=== PATIENT | female | born 1975 | race Caucasian/White ===

== ENCOUNTER 2017-04-24 20:47 | Emergency (ER) | payer MEDICAID ==
[2017-04-24] MEDS ORDERED: KETOROLAC 30 MG/ML VIAL IM ONE (21:13)
--- NOTE | 2017-04-24 21:21 | Emergency Department Record ---
History of Present Illness - General Chief complaint: Rash Stated complaint: RASH AND PAIN Time Seen by Provider: 04/24/17 21:01 Source: Patient Mode of Arrival: Ambulatory Limitations: No limitations - History of Present Illness Initial comments: The patient is here due to a painful skin rash and total body pain for years. She had an appointment with her PCP last week and had multiple blood tests performed. She did try to F/U with her PCP this week but since her PCP no longer works here at [facility] she decided to come to the ER. Her main complaint is total body pain and a chronic skin rash. She states she used to be on Tramadol for the pain but now has been weaned off of it. She is very frustrated as to why no one can figure out her condition and has seen multiple specialists for it. MD complaint: Rash Onset/Timin -: Year(s) Location: Generalized Quality: Other Consistency: Constant Improves with: None Worsens with: None Context: None Associated symptoms: Denies other symptoms Treatments Prior to Arrival: Other - Related Data Previous Rx's Medication Instructions Recorded Clindamycin HCl [Cleocin HCl] 300 mg PO QID #28 capsule 04/24/17 Allergies Allergy/AdvReac Type Severity Reaction Status Date / Time hydrocodone bitartrate Allergy Intermediate NAUSEA AND Verified 04/24/17 21:00 [From Vicodin] VOMITING zolpidem tartrate Allergy Intermediate BEHAVIORAL Verified 04/24/17 21:00 [From Ambien] CHANGES Travel Screening - Travel/Exposure Within Last 30 Days Have you traveled within the last 30 days?: No - Travel/Exposure Within Last Year Have you traveled outside the [place] in the last year?: No - Additonal Travel Details Have you been exposed to anyone with a communicable illness?: No - Travel Symptoms Symptom Screening: None Review of Systems Constitutional: Reports: Malaise. Denies: Chills, Fever Eyes: Denies: Eye discharge ENT: Denies: Congestion Respiratory: Denies: Cough, Dyspnea Past Medical History - SOCIAL HISTORY Smoking Status: Current every day smoker Alcohol Use: None Drug Use Detail:: Marijuana - RESPIRATORY Hx Respiratory Disorders: Yes Hx Asthma: Yes Hx COPD: Yes - CARDIOVASCULAR Hx Cardio Disorders: No - NEURO Hx Neuro Disorders: Yes Hx Neuropathy: Yes - GI Hx GI Disorders: Yes Hx Reflux: Yes Comment:: crohns, IBSD - Hx Genitourinary Disorders: No - ENDOCRINE Hx Endocrine Disorders: No Hx Diabetes: No Hx Thyroid Disease: No - MUSCULOSKELETAL Hx Musculoskeletal Disorders: Yes Hx Arthritis: Yes (RA) Hx Fibromyalgia: Yes - PSYCH Hx Psych Problems: Yes Hx Anxiety: Yes Hx Depression: Yes - HEMATOLOGY/ONCOLOGY Hx Hematology/Oncology Disorders: Yes Hx Anemia: Yes Comment:: Lyme's disease in 2007 Family Medical History Any Significant Family History?: No Hx Cancer: Grandparents Hx Diabetes: Grandparents Physical Exam - General General Appearance: Alert, Oriented x3, Cooperative, No acute distress - Head Head exam: Atraumatic, Normocephalic - Eye Eye exam: Normal appearance, PERRL - ENT Throat exam: Normal inspection. negative: Tonsillar erythema, Tonsillar exudate - Neck Neck exam: Normal inspection, Full ROM. negative: Tenderness - Respiratory Respiratory exam: Normal lung sounds bilaterally. negative: Respiratory distress - Cardiovascular Cardiovascular Exam: Regular rate, Normal rhythm, Normal heart sounds - Extremities Extremities exam: Normal inspection, Full ROM, Normal capillary refill. negative: Tenderness - Neurological Neurological exam: Alert. negative: Motor sensory deficit - Skin Skin exam: Rash (There are multiple pustural lesions to her face, scalp and extremities. They appear to be from picking at her skin in some places.) Course Vital Signs 04/24/17 20:49 Temperature 99.1 F Pulse Rate 88 Respiratory 20 Rate Blood Pressure 145/93 Pulse Ox 99 - Reevaluation(s) Reevaluation #1: The patient is doing well at this time. Her repeat temp is normal. Her lab work did return with a very elevated WBC but I strongly believe it is due to the large dose of oral steroids she was placed on last week. She states she was given 100 mg daily for 3 days, then 80 mg daily for 3 days, and then decreased to 60 mg daily. 04/24/17 22:34 Reevaluation #2: The patient is doing a lot better at this time. I did explain her test results to her and the need to F/U next week with her PCP. 04/24/17 22:46 Medical Decision Making - Lab Data Result diagrams: 04/24/17 21:30 04/24/17 21:30 Disposition Disposition: Discharge Clinical Impression: Skin lesions, generalized Disposition: Home, Self-Care Condition: (1) Good Instructions: Acute Rash (ED) Additional Instructions: Please take the Clindamycin as directed and continue your home pain medicines. Please see your PCP next week as planned. Return to the ER for any worsening symptoms. Prescriptions: Clindamycin HCl [Cleocin HCl] 300 mg PO QID #28 capsule Forms: Patient Portal Access Time of Disposition: 22:48 Quality - Quality Measures Quality Measures: N/A - Blood Pressure Screening View Details: Yes Does Patient Have Any of the Following: No Blood Pressure Classification: Hypertensive Reading Systolic Measurement: 145 Diastolic Measurement: 93 Screening for High Blood Pressure: < Pre-Hypertensive BP, F/U Documented > [ G8950] Pre-Hypertensive Follow-up Interventions: Referral to alternative/primary care provider.
[2017-04-24 21:34] LABS: HEMATOCRIT 34.3 % (35.0-47.0); HEMOGLOBIN 11.1 gm/dl (11.6-16.0); LYMPH % 4.5 % (16-45); MEAN CELL VOLUME 84.7 fl (81-97); MEAN CORPUSCULAR HEMOGLOBIN 27.4 pg (27-33); MEAN CORPUSCULAR HGB CONC 32.4 g/dl (32-36); MEAN PLATELET VOLUME 8.3 fl (7.4-10.4); MONO % 3.8 % (0-9); PLATELET COUNT 528 K/uL (130-400); RED BLOOD COUNT 4.05 M/uL (3.80-5.40); RED CELL DISTRIBUTION WIDTH 18.5 % (11.5-14.5)
[2017-04-24 21:38] LABS: WHITE BLOOD COUNT W/O DIFF 24.7 K/uL (4.2-12.2)
[2017-04-24 21:53] LABS: ALB/GLOB RATIO 1.4 (1.1-1.8); ALBUMIN 4.4 g/dL (4.0-5.0); ALKALINE PHOSPHATASE 89 U/L (35-104); ALT/SGPT 24 U/L (<33); AST/SGOT 23 U/L (10.0-35.0); BLOOD UREA NITROGEN 9 mg/dL (6-20); CREATININE 0.6 mg/dL (0.5-0.9); EST GLOMERULAR FILTRATION RATE > 60 mL/min; GLUCOSE,RANDOM 169 mg/dL (74-109); TOTAL PROTEIN 7.6 g/dL (6.6-8.7)
[2017-04-24 22:19] LABS: PLATELET ESTIMATE INCREASED (NORMAL)
[2017-04-24 22:30] LABS: URINE APPEARANCE CLEAR; URINE BILIRUBIN NEGATIVE (NEGATIVE); URINE BLOOD NEGATIVE (NEGATIVE); URINE COLOR YELLOW; URINE GLUCOSE (UA) NEGATIVE (NEGATIVE); URINE KETONE NEGATIVE (NEGATIVE); URINE LEUKOCYTE ESTERASE NEGATIVE (NEGATIVE); URINE NITRITE NEGATIVE (NEGATIVE); URINE PROTEIN NEGATIVE (NEGATIVE); URINE UROBILINOGEN 0.2 E.U./dL (0.20 - 1.00)
[2017-04-24] MEDS ORDERED: CLINDAMYCIN 150 MG CAP PO ONE (22:38)
== END 2017-04-24 22:57 | disposition home or self-care (01) ==
LOC: ER 20:47
DX: L98.9 Disorder of the skin and subcutaneous tissue, unspecified (principal); D72.829 Elevated white blood cell count, unspecified
CPT/HCPCS: 99283 ×2; 96372; 86140; 80053; 81003; 85027; J1885

== ENCOUNTER 2017-04-28 14:54 | Emergency (ER) | payer MEDICAID ==
--- NOTE | 2017-04-28 15:06 | Emergency Department Record ---
History of Present Illness - General Stated Complaint: PSYCH EVAL Time Seen by Provider: 04/28/17 14:59 Source: Patient Mode of Arrival: Ambulatory Limitations: No limitations - History of Present Illness Initial Comments: 41 yo female presents to the ER from her PCP's office at the [facility]. The patient has been exhibiting erratic odd behavior with increased anxiety, stress, agitation that seems to manifest with excessive scratching, skin picking, preoccupation. Per her PCP she has had some thoughts of self harm. The patient has a history of Bipolar, anxiety, borderline, neurotic. Her PCP is Joana PARDO at the [facility]. The patient feels worthless, hates herself and others. She does not have a plan but can "figure something out". She is extremely pre-occupied with her skin and that she has disease in spite of being seen by dermatology and [facility]. She thinks the lesions are to a point that they are inside her head and effect her thoughts. MD Complaint: Feels depressed, Suicidal ideation, Other -: Days(s) Associated Psychiatric Symptoms: Depression, Suicidal ideation Quality: Constant Improves With: None Worsens With: Other Context: Significant life stressor Treatments Prior to Arrival: None - Henderson Coma Scale Eye Response: (4) Open spontaneously Motor Response: (6) Obeys commands Verbal Response: (5) Oriented Henderson Total: 15 - Related Data Previous Rx's Medication Instructions Recorded Clindamycin HCl [Cleocin HCl] 300 mg PO QID #28 capsule 04/24/17 Allergies Allergy/AdvReac Type Severity Reaction Status Date / Time hydrocodone bitartrate Allergy Intermediate NAUSEA AND Verified 04/28/17 15:20 [From Vicodin] VOMITING zolpidem tartrate Allergy Intermediate BEHAVIORAL Verified 04/28/17 15:20 [From Ambien] CHANGES Review of Systems Constitutional: Denies: Chills, Fever, Weakness Eyes: Denies: Eye discharge, Eye pain, Photophobia ENT: Denies: Congestion, Throat pain Respiratory: Denies: Cough Cardiovascular: Denies: Chest pain, Syncope Endocrine: Reports: Fatigue Gastrointestinal: Reports: Abdominal pain (history of Crohn's). Denies: Diarrhea, Nausea, Vomiting Genitourinary: Denies: Dysuria, Urgency Musculoskeletal: Denies: Arthralgia, Back pain, Myalgia Skin: Reports: As per HPI, Rash Neurological: Denies: Headache Psychiatric: Reports: Anxiety, Depression, Suicidal thoughts Hematological/Lymphatic: Denies: Easy bleeding, Easy bruising, Swollen glands Past Medical History - SOCIAL HISTORY Smoking Status: Current every day smoker Drug Use Detail:: Marijuana - RESPIRATORY Hx Respiratory Disorders: Yes Hx Asthma: Yes Hx COPD: Yes - CARDIOVASCULAR Hx Cardio Disorders: No - NEURO Hx Neuro Disorders: Yes Hx Neuropathy: Yes - GI Hx GI Disorders: Yes Hx Reflux: Yes Comment:: crohns, IBSD - Hx Genitourinary Disorders: No - ENDOCRINE Hx Endocrine Disorders: No Hx Diabetes: No Hx Thyroid Disease: No - MUSCULOSKELETAL Hx Musculoskeletal Disorders: Yes Hx Arthritis: Yes (RA) Hx Fibromyalgia: Yes - PSYCH Hx Psych Problems: Yes Hx Anxiety: Yes Hx Depression: Yes - HEMATOLOGY/ONCOLOGY Hx Hematology/Oncology Disorders: Yes Hx Anemia: Yes Comment:: Lyme's disease in 2007 Family Medical History Hx Cancer: Grandparents Hx Diabetes: Grandparents Physical Exam - General General Appearance: Alert, Oriented x3, Cooperative, No acute distress, Anxious - Head Head exam: Atraumatic, Normocephalic. negative: Normal inspection Head exam detail: Abrasion (numerous skin scabs) - Eye Eye exam: Normal appearance, PERRL. negative: Conjunctival injection, Scleral icterus - ENT ENT exam: Normal exam, Mucous membranes moist Ear exam: Normal external inspection Nasal Exam: Normal inspection Mouth exam: Normal external inspection Teeth exam: Normal inspection Throat exam: Normal inspection - Neck Neck exam: Normal inspection - Respiratory Respiratory exam: Normal lung sounds bilaterally. negative: Respiratory distress - Cardiovascular Cardiovascular Exam: Regular rate, Normal rhythm, Normal heart sounds - Rectal Rectal exam: Deferred - exam: Deferred - Extremities Extremities exam: negative: Normal inspection (numerous areas of scabbing from picking) - Neurological Neurological exam: Alert, Altered (pressured speech, racing thoughts), Oriented X3 - Psychiatric Psychiatric exam: Anxious, Suicidal ideation. negative: Normal affect, Normal mood - Skin Skin exam: Other (numerous scattered scabs) Course - Reevaluation(s) Reevaluation #1: I informed the patient of the clinical Certification process for her suicidal thoughts, admission of loss of thought control, anxiety and depression that now represent threat to self 04/28/17 15:37 The Certification was completed The labs were reviewed The WBC is elevated. The patient is taking steroids for her Crohn as this causes an elevation typically in the WBC. She does not have any signs or symptoms of infection. No acute changes on the CMP The UDS is positive for marijuana Negative Alcohol, Acetaminophen and Salicylate 04/28/17 16:33 HCG is negative 04/28/17 16:37 She is medically cleared 04/28/17 16:38 04/28/17 16:48 Information was faxed to [facility]. 04/28/17 19:11 The patient was accepted to [facility] Medical Decision Making - Lab Data Result diagrams: 04/28/17 15:12 04/28/17 15:12 Disposition Disposition: Transfer Clinical Impression: Psychosis, Suicidal ideation Depression Qualifiers: Depression Type: major depressive disorder Major depression recurrence: single episode Major depression episode severity: severe Psychotic features: with psychotic features Disposition: Psychiatric Hospital Transfer To: [facility] Reason For Transfer: Suicidal, Psychosis Accepting Physician: Crisis services Time Discussed w/Accepting Physician: 19:12 Condition: (2) Stable Time of Disposition: 16:39 Quality - Quality Measures Quality Measures: N/A - Blood Pressure Screening Does Patient Have Any of the Following: No Blood Pressure Classification: Pre-Hypertensive BP Reading Systolic Measurement: 146 Diastolic Measurement: 88 Screening for High Blood Pressure: < Pre-Hypertensive BP, F/U Documented > [ G8950] Pre-Hypertensive Follow-up Interventions: Referral to alternative/primary care provider.
[2017-04-28 15:44] LABS: ALB/GLOB RATIO 1.3 (1.1-1.8); ALBUMIN 4.1 g/dL (4.0-5.0); ALKALINE PHOSPHATASE 70 U/L (35-104); ALT/SGPT 31 U/L (<33); AST/SGOT 35 U/L (10.0-35.0); BLOOD UREA NITROGEN 12 mg/dL (6-20); CREATININE 0.6 mg/dL (0.5-0.9); EST GLOMERULAR FILTRATION RATE > 60 mL/min; GLUCOSE,RANDOM 127 mg/dL (74-109); SALICYLATE 0.8 mg/dL (2.8-20); TOTAL PROTEIN 7.2 g/dL (6.6-8.7)
[2017-04-28 15:45] LABS: ACETAMINOPHEN < 5.0 ug/mL (10.0-30.0)
[2017-04-28 15:45] LABS: URINE APPEARANCE CLEAR; URINE BILIRUBIN NEGATIVE (NEGATIVE); URINE BLOOD TRACE-I (NEGATIVE); URINE COLOR YELLOW; URINE GLUCOSE (UA) NEGATIVE (NEGATIVE); URINE KETONE NEGATIVE (NEGATIVE); URINE LEUKOCYTE ESTERASE NEGATIVE (NEGATIVE); URINE NITRITE NEGATIVE (NEGATIVE); URINE PROTEIN NEGATIVE (NEGATIVE); URINE UROBILINOGEN 0.2 E.U./dL (0.20 - 1.00)
[2017-04-28 15:50] LABS: AMPHETAMINE SCREEN URINE NOT DETECTED; BARBITURATE SCREEN URINE NOT DETECTED; BENZODIAZEPINE SCREEN URINE NOT DETECTED; COCAINE SCREEN URINE NOT DETECTED; METHADONE SCREEN URINE NOT DETECTED; METHAMPHETAMINE SCREEN NOT DETECTED; OPIATE SCREEN URINE NOT DETECTED; OXYCODONE SCREEN URINE NOT DETECTED; PHENCYCLIDINE SCREEN URINE NOT DETECTED; PROPOXYPHENE SCREEN URINE NOT DETECTED; THC SCREEN URINE DETECTED; TRICYCLIC ANTIDEPRESSANT SCRN NOT DETECTED
[2017-04-28 15:51] LABS: HCG,QUALITATIVE URINE NEGATIVE (NEGATIVE)
[2017-04-28 15:56] LABS: THYROID STIMULATING HORMONE 0.25 uIU/mL (0.270-4.20)
[2017-04-28 15:58] LABS: BASO % 0.1 % (0-6); HEMATOCRIT 33.2 % (35.0-47.0); HEMOGLOBIN 10.6 gm/dl (11.6-16.0); LYMPH % 4.8 % (16-45); MEAN CELL VOLUME 85.8 fl (81-97); MEAN CORPUSCULAR HGB CONC 31.9 g/dl (32-36); MEAN PLATELET VOLUME 8.5 fl (7.4-10.4); MONO % 3.5 % (0-9); PLATELET COUNT 526 K/uL (130-400); RED BLOOD COUNT 3.87 M/uL (3.80-5.40); RED CELL DISTRIBUTION WIDTH 18.9 % (11.5-14.5)
[2017-04-28 16:03] LABS: MEAN CORPUSCULAR HEMOGLOBIN 27.3 pg (27-33); WHITE BLOOD COUNT W/O DIFF 21.5 K/uL (4.2-12.2)
[2017-04-28 16:05] LABS: URINE BACTERIA NONE SEEN; URINE EPITHELIAL CELLS 0 - 2 (FEW); URINE RBC 0 - 2 (NONE SEEN)
[2017-04-28] MEDS: NICOTINE 21 MG/24 HOUR PATCH TD SCH (19:24)
== END 2017-04-28 21:02 ==
LOC: ER 14:54
DX: R45.851 Suicidal ideations (principal); F32.3 Major depressive disorder, single episode, severe with psychotic features; F17.210 Nicotine dependence, cigarettes, uncomplicated
CPT/HCPCS: 99285 ×2; 80053; 81001; 84443; 81025; 80305; 85027; G0480 ×3; 80320; 80329

== ENCOUNTER 2018-11-13 13:07 | Emergency (ER) | payer MEDICAID ==
--- NOTE | 2018-11-13 13:39 | Emergency Department Record ---
History of Present Illness - General Chief complaint: Cold Stated complaint: sinus infection Time Seen by Provider: 11/13/18 13:13 Source: Patient Mode of Arrival: Ambulatory Limitations: No limitations - History of Present Illness Initial comments: pt has had a sinus infection for 6 wks and has had a course of levaquin and feels worse w green rhinitis, ear pain , throat pain complaint: Ear pain, Difficulty swallowing, Sore throat Onset/Timin -: Week(s) Severity: Moderate Severity scale (1-10): 8 Quality: Other Consistency: Constant Improves with: None Worsens with: None Associated Symptoms: Rhinorrhea, Sore throat - Related Data Previous Rx's Medication Instructions Recorded Azithromycin [Zithromax] 250 mg PO DAILY #6 tab 11/13/18 Allergies Allergy/AdvReac Type Severity Reaction Status Date / Time hydrocodone bitartrate Allergy Intermediate NAUSEA AND Unverified 10/19/18 16:57 [From Vicodin] VOMITING zolpidem tartrate Allergy Intermediate BEHAVIORAL Unverified 10/19/18 16:57 [From Ambien] CHANGES amoxicillin trihydrate AdvReac diarrhea Unverified 10/19/18 16:59 [From Augmentin] gluten AdvReac ABDOMINAL Unverified 10/19/18 16:57 CRAMPS lactose AdvReac ABDOMINAL Unverified 10/19/18 16:57 CRAMPS potassium clavulanate AdvReac diarrhea Unverified 10/19/18 16:59 [From Augmentin] Travel Screening - Travel/Exposure Within Last 30 Days Have you traveled within the last 30 days?: No Review of Systems Reviewed: No additional complaints except as noted below Constitutional: Reports: As per HPI. Denies: Chills, Fever, Malaise, Night sweats, Weakness, Weight change Eyes: Reports: As per HPI. Denies: Eye discharge, Eye pain, Photophobia, Vision change ENT: Reports: As per HPI, Congestion, Ear pain, Throat pain. Denies: Dental pain, Epistaxis, Hearing loss Respiratory: Reports: As per HPI, Cough. Denies: Dyspnea, Hemoptysis, Stridor, Wheezes Cardiovascular: Reports: As per HPI. Denies: Arrhythmia, Chest pain, Dyspnea on exertion, Edema, Murmurs, Orthopnea, Palpitations, Paroxysmal nocturnal dyspnea, Rheumatic Fever, Syncope Endocrine: Reports: As per HPI. Denies: Fatigue, Heat or cold intolerance, Polydipsia, Polyuria Gastrointestinal: Reports: As per HPI. Denies: Abdominal pain, Constipation, Diarrhea, Hematemesis, Hematochezia, Melena, Nausea, Vomiting Genitourinary: Reports: As per HPI. Denies: Abnormal menses, Discharge, Dyspareunia, Dysuria, Frequency, Hematuria, Incontinence, Retention, Urgency Musculoskeletal: Reports: As per HPI. Denies: Arthralgia, Back pain, Gout, Joint swelling, Myalgia, Neck pain Skin: Reports: As per HPI. Denies: Bruising, Change in color, Change in hair/ nails, Lesions, Pruritus, Rash Neurological: Reports: As per HPI. Denies: Abnormal gait, Confusion, Headache, Numbness, Paresthesias, Seizure, Tingling, Tremors, Vertigo, Weakness Psychiatric: Reports: As per HPI. Denies: Anxiety, Auditory hallucinations, Depression, Homicidal thoughts, Suicidal thoughts, Visual hallucinations Hematological/Lymphatic: Reports: As per HPI. Denies: Anemia, Blood Clots, Easy bleeding, Easy bruising, Swollen glands Past Medical History - SOCIAL HISTORY Smoking Status: Current every day smoker Alcohol Use: None Drug Use: None - RESPIRATORY Hx Respiratory Disorders: Yes Hx Asthma: Yes Hx COPD: Yes - CARDIOVASCULAR Hx Cardio Disorders: No - NEURO Hx Neuro Disorders: Yes Hx Neuropathy: Yes - GI Hx GI Disorders: Yes Hx Reflux: Yes Comment:: crohns, IBSD - Hx Genitourinary Disorders: No - ENDOCRINE Hx Endocrine Disorders: No Hx Diabetes: No Hx Thyroid Disease: No - MUSCULOSKELETAL Hx Musculoskeletal Disorders: Yes Hx Arthritis: Yes (RA) Hx Fibromyalgia: Yes - PSYCH Hx Psych Problems: Yes Hx Anxiety: Yes Hx Depression: Yes - HEMATOLOGY/ONCOLOGY Hx Hematology/Oncology Disorders: Yes Hx Anemia: Yes Comment:: Lyme's disease in 2008 Family Medical History Any Significant Family History?: Yes Hx Cancer: Grandparents Hx Diabetes: Grandparents Physical Exam - General General Appearance: Alert, Oriented x3, Cooperative, No acute distress - Head Head exam: Normal inspection - Eye Eye exam: Normal appearance, PERRL, EOMI Pupils: Normal accommodation - ENT ENT exam: Normal exam, Mucous membranes moist, Normal external ear exam, Normal orophraynx, Other (tms erythematous) Ear exam: Normal external inspection. negative: External canal tenderness Nasal Exam: Sinus tenderness. negative: Discharge Mouth exam: Normal external inspection, Tongue normal Teeth exam: Normal inspection. negative: Dental caries Throat exam: Normal inspection, Tonsillar erythema. negative: Tonsillar exudate - Neck Neck exam: Normal inspection, Full ROM. negative: Tenderness - Respiratory Respiratory exam: Normal lung sounds bilaterally. negative: Respiratory distress - Cardiovascular Cardiovascular Exam: Regular rate, Normal rhythm, Normal heart sounds - GI/Abdominal GI/Abdominal exam: Soft, Normal bowel sounds. negative: Tenderness - Rectal Rectal exam: Deferred - exam: Deferred - Extremities Extremities exam: Normal inspection, Full ROM, Normal capillary refill. negative: Tenderness - Back Back exam: Reports: Normal inspection, Full ROM. Denies: Muscle spasm, Rash noted, Tenderness - Neurological Neurological exam: Alert, Normal gait, Oriented X3, Reflexes normal - Psychiatric Psychiatric exam: Normal affect, Normal mood - Skin Skin exam: Dry, Intact, Normal color, Warm Course Vital Signs 11/13/18 13:10 Temperature 98.5 F Pulse Rate 79 Respiratory 18 Rate Blood Pressure 132/89 Pulse Ox 97 Disposition Disposition: Discharge Clinical Impression: Acute sinus infection Qualifiers: Sinusitis location: unspecified location Recurrence: recurrent Qualified Code(s ): J01.91 - Acute recurrent sinusitis, unspecified Disposition: Home, Self-Care Condition: (1) Good Instructions: Sinusitis (ED), Warm Compress or Soak (ED) Additional Instructions: follow up with family doctor. return sooner if worse. Prescriptions: Azithromycin [Zithromax] 250 mg PO DAILY #6 tab Quality - Quality Measures Quality Measures: N/A - Blood Pressure Screening Does Patient Have Any of the Following: No Blood Pressure Classification: Pre-Hypertensive BP Reading Systolic Measurement: 132 Diastolic Measurement: 89 Screening for High Blood Pressure: < Pre-Hypertensive BP, F/U Documented > [ G8950] Pre-Hypertensive Follow-up Interventions: Follow-up with rescreen every year.
== END 2018-11-13 13:46 | disposition home or self-care (01) ==
LOC: ER 13:07
DX: J01.91 Acute recurrent sinusitis, unspecified (principal); F17.210 Nicotine dependence, cigarettes, uncomplicated
CPT/HCPCS: 99282